=== PATIENT | female | born 1990 | race Asian ===

== ENCOUNTER 2025-04-16 13:09 | Outpatient (REF) | payer OTHER, SELFPAY ==
[2025-04-17 00:39] LABS: Bacterial Vaginosis PCR POSITIVE (Negative); Candida Group PCR NOT DETECTED (Not Detect); Candida glab krusei PCR NOT DETECTED (Not Detect); Trichomonas vaginalis PCR NOT DETECTED (Not Detect)
== END 2025-04-16 13:10 | disposition home or self-care (01) ==
LOC: HO.LNP 13:09
PROVIDERS: Visit Provider Advanced Practice Midwife
DX: Z01.419 Encounter for gynecological examination (general) (routine) without abnormal findings (principal); N76.0 Acute vaginitis; Z20.2 Contact with and (suspected) exposure to infections with a predominantly sexual mode of transmission
CPT/HCPCS: 81515; 87626; 88175

== ENCOUNTER 2025-04-16 13:09 | Outpatient (AMB) | payer OTHER, SELFPAY ==
--- NOTE | 2025-04-16 13:10 | A.OFFVIS_ITS ---
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 previous care with [facility]. She reports being overdue for her exam and has not had a Pap smear since her three years ago. She has the following concerns: The patient recently completed a five-day course of antibiotics for a urinary tract infection last week. Following the treatment, she began noticing a white vaginal discharge approximately three days ago, a symptom she did not have prior to the medication. She has not used any [id number] treatments for the discharge. She is in a relationship x several years. She denies any issues of DV, declines STD screen Exercise: limited due to life stressors the patient is a restaurant regional owner operator truck driver, which she reports causes significant stress and long work hours. She reports recent weight gain with stress eating and has not been exercising, though she plans to resume exercising after the holiday season Nutrition/calcium: limited Contraception: vasectomy Last Pap: unknown, she does report hx abnormal and will sign ALDO to obtain records , Last mammo: N/A she denies family hx Breast/ovarian ca The patient is a 35-year-old female presenting for an annual gynecological examination. [facility] Medical History (Updated 04/16/25 @ 13:56 by Steffanie Castro CNM) Patient denies medical problems Surgical History (Updated 04/16/25 @ 13:56 by Steffanie Castro CNM) No pertinent past surgical history Family History (Updated 04/16/25 @ 13:57 by Steffanie Castro CNM) Father Hypertension Mother Arthritis Social History (Updated 04/16/25 @ 13:57 by Steffanie Castro CNM) Household Members: Spouse and Children Housing: House Alcohol intake: never Comment: occasionally Patient Tobacco Use Status: Never used Tobacco Use of substances other than those prescribed or required for medical reasons: No Have you been hit, kicked, punched, or otherwise hurt by someone within the past year? 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 Sexually active: Yes Sexual orientation: Straight/Heterosexual Gender identity: Female Female Reproductive History Menstrual Age of Menarche: 13 Date of last menstrual period: 03/25/25 control method: other ( has vasectomy) Total pregnancies: 4 Number of Living Children: 3 Ab spontaneous: 1 History of abnormal pap smear: Yes Review of Systems Const Reports no additional complaints Eyes Reports no additional complaints ENT Reports no additional complaints Card Reports no additional complaints Resp Reports no additional complaints GI Reports no additional complaints Reports as per HPI Skin/Breast Reports system reviewed and no additional complaints, except as documented Physical Exam Vital Signs: Last Vital Signs BP 116/78 04/16/25 13:15 BMI result Body Mass Index 28.8 Const General: cooperative, healthy appearing and no acute distress Orientation/consciousness: patient oriented x3 HEENT Head: Yes normal to inspection and Yes normocephalic Ears: external ears normal General nose exam: No nasal discharge present Neck Neck: Yes normal visual inspection Chest Breast/axilla inspection: normal inspection of the breasts, normal inspection of the axillae and Other (No skin changes, peau d orange, or nipple discharge noted) Breast/axilla palpation: normal palpation of the breasts, normal palpation of the axillae and no axillary lymphadenopathy Resp Effort & Inspection: normal respiratory effort and able to speak in complete sentences GI Inspection: No distended Palpation (GI): Soft to palpation, nontender and no masses Percussion: Yes normal to percussion Rectal Exam - Female: External hemorrhoid(s) present External Female Exam: normal external appearance and normal appearance of the urethra Speculum Exam - Vagina: normal appearance of the vagina and other (creamy white vaginal discharge) Speculum Exam - Cervix: normal appearance of the cervix and normal palpation (neg CMT) Bimanual exam- vagina & uterus: normal bimanual exam, normal palpation (neg CMT), uterine mobility normal and non-tender Bimanual Exam- Adnexa, other: no masses and No adnexal tenderness Skin General skin exam: no rashes or lesions noted Neuro General: patient oriented x3 and moves all extremities Extrem General: Yes full ROM Psych Speech and movement: Normal speech and movement present Affect: normal affect Attitude: cooperative Thought process: Normal thought process present Assessment & Plan Assessment & Plan (1) Well woman exam with routine gynecological exam: Code(s): Z01.419 - Encounter for gynecological examination (general) (routine) without abnormal findings Plan: During the visit, the following areas of concern were addressed: Monitoring of the menstrual cycle Regular exercise Healthy lifestyle Domestic violence Health Maintenance and Screening -Reviewed ASCCP guidelines for Paps and yearly (bi-yearly ) pelvic exam. -Reviewed and encouraged diet and exercise for cardiovascular and bone health -Reviewed breast self-awareness. Importance of yearly mammogram after age 40 (earlier if first-degree relative with breast cancer at a younger age ) Discuss use of 3 times per week weight-bearing exercise, vitamin D3 and servings of dietary calcium daily for bone health. -continue to follow with PCP for general medical care, immunizations. Family and personal history of cancer reviewed. Genetic screening- not indicated The patient has BMI: 28 Approaches towards weight loss are discussed including burning more calories than one takes in by frequent, small meals, portion control, avoiding eating before bedtime, regular exercise with an emphasis on duration rather than intensity, strength training exercise. RTO one year or sooner ford Castro CNM Note about provider documentation : If you or the patient named in this chart and are reviewing your medical notes, please note that medical documentation is often written with abbreviations and medical terminology, and directed for other providers who may be involved in your care as well. Documentation is critical to record what has happened, what tests were ordered, and so they are interpreted with the resulting diagnoses. These notes have been made available for patient review but not specifically written for the patient. Important health information is always given to my patients in clinical instructions. Please review your after visit summary and our contact our clinical staff if you have any questions. (2) Screening breast examination: Code(s): Z12.39 - Encounter for other screening for malignant neoplasm of breast (3) Screening for malignant neoplasm of cervix: Code(s): Z12.4 - Encounter for screening for malignant neoplasm of cervix (4) Acute vaginitis: Code(s): N76.0 - Acute vaginitis Plan 1. Routine gynecological care The patient is a 35-year-old female presenting for an overdue annual examination. A clinical breast exam and pelvic exam were performed. A co-test Pap smear was collected for cervical cancer screening, as her last one was over three years ago. The patient will sign a release to obtain prior records to review her history, including a possible past abnormal Pap smear. 2. Vaginal discharge The patient reports new onset of white vaginal discharge after a recent course of antibiotics for a UTI. This is suspicious for vulvovaginal candidiasis. A swab was collected for testing. Results are expected by Monday, and treatment will be based on the findings. 3. Health Maintenance Breast self-awareness was discussed, with instruction to check for changes and report any concerns. The patient was counseled on lifestyle factors, including stress and weight gain. Her partner's vasectomy was confirmed as her method of contraception. Orders: Orders Bacterial Vaginosis Panel Today N76.0 - Acute vaginitis, Z01.419 - Encounter for gynecological examination (general) (routine) without abnormal findings Pap Smear Today Z01.419 - Encounter for gynecological examination (general) (routine) without abnormal findings, Z12.4 - Encounter for screening for malignant neoplasm of cervix Coding Level of Care Code New Pt Prev Care 18-39yr([id number] Diagnoses Well woman exam with routine gynecological exam Z01.419 Screening breast examination Z12.39 Screening for malignant neoplasm of cervix Z12.4 Acute vaginitis N76.0
--- OUTSIDE RECORDS SUMMARY | 2025-04-16 13:11 | XMS_ITS | Encounter Summary ---
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 Name Role Phone Alicia Washburn MD Primary Care Provider [phone] Encounter Details Date Type Department Care Team (Late st Contact Info) Description 04/02/2025 Results Follow-Up Internal [facility] [address] [place], [place] [phone] Alicia Washburn MD [address], [place] Social History Tobacco Use Types Packs/Day Years Used Date Smoking Tobacco: Never Smokeless Tobacco: Never Alcohol Use Standard Drinks/Week Comments Not Currently 1.7 (1 standard drink = 0.6 oz p ure alcohol) Housing Instability Answer Date Recorde d Are you worried that in the next 2 months you may not have stable housing? No 04/02/2025 Food Access & Nutrition Answer Date Rec orded Do you have access to a vari ety of food including fruits and vegetables? Yes 04/02/2025 Access to Healthcare Answer Date Record ed Within the last 3 months, ho w many times did you visit the emergency department for your medical care? 0 04/02/2025 Health Literacy Answer Date Recorded How often do you need to hav e someone help you when you read instructions, pamphlets, or other written material from your doctor or pharmacy? Never 04/02/2025 Caregiver: How often do you need to have someone help you when you read instructions, pamphlets, or other written material from your doctor or pharmacy? Not on file 04/02/2025 Financial Risk Answer Date Recorded How hard is it for you to pa y for the very basics like food, housing, medical care, and air conditioning / heating? Somewhat hard 04/02/2025 Transportation Answer Date Recorded Has the lack of transportati on kept you from meetings, work, or from getting things needed for daily living? No Has the lack of transportati on kept you from medical appointments or from getting medications? No 04/02/2025 Social Isolation Answer Date Recorded How often do you feel lonely or isolated from th ose around you? Never 04/02/2025 Food Risk Answer Date Recorded Within the past 12 months we worried whether our food would run out before we got money to buy more. Sometimes true 025 Within the past 12 months th e food we bought just didn't last and we didn't have money to get more. Never true 04/02/2025 Dependent Care Answer Date Recorded Do you need help finding or paying for care for your loved ones. For example, child care specialist or elderly care for an older adult? No 04/02/2025 Education Answer Date Recorded Do you think completing more education or training, like finishing a GED, going to college, or learning a trade, would be helpful for you? No 04/02/2025 Employment and Income Answer Date Recor ded During the last four weeks, have you been actively looking for work? No 04/02/2025 Living Situation Answer Date Recorded What is your living situation? Unrecognized valu e 04/02/2025 Comments No Sex and Gender Information Value Date Recorded Sex Assigned at Not on file Legal Sex Female 8:18 PM EST Gender Identity Not on file Sexual Orientation Not on file documented as of this encounter Ordered Prescriptions Prescription Sig Dispense Quantity Refills Last Filled Start Date End Date nitrofurantoin, macrocrystal-monoh ydrate, (MACROBID) 100 mg capsule Take 1 capsule (100 mg total) by mouth 2 (two) times a day for 5 days. 10 each 04/04/2025 documented in this encounter Progress Notes * Alicia Washburn MD - 04/03/2025 8:50 AM EST Please call patient to reply to IPPLEXt message Repeat urine analysis ordered Dear Annabella, Reviewed your labs. Your cholesterol is moderately elevated. Recommend heart healthy diet like Mediterrain diet. Will send info. I am referring you to hematology for elevated red cell count. Your urine looks contaminated. We can repeat the urine test, make sure you catch mid stream specimen in a sterile cup after wiping the area front to back Reply to my message Dr Washburn documented in this encounter Plan of Treatment Upcoming Encounters Date Type Department Care Team (Late st Contact Info) Description 10/09/2025 11:00 AM EDT Office Visit Internal Medicine - [address] [place] [phone] Alicia Washburn MD [address] [place] [phone] documented as of this encounter Visit Diagnoses Diagnosis Acute cystitis without hematuria- Primary documented in this encounter Additional Health Concerns Assessment Noted Time PHQ-9 Depression Total Score: 0 04/02/20 11:12 AM EST documented as of this encounter Care Teams Cnc Machinist 2Nd Shift Relationship Specialty Start Date End Date Alicia Washburn MD [address] [place] [phone] PCP - General Internal Medicine 06/26/24 documented as of this encounter
--- OUTSIDE RECORDS SUMMARY | 2025-04-16 13:12 | XMS_ITS | Clinical Summary ---
Author Organization [facility] [address] [facility] l[address] Address [address] [place] [address] Phone Care Team Providers Care Field Service Tech Name Role Phone lAicia Washburn MD Primary Care Provider [phone] Allergies Active Allergy Reactions Criticality Noted Date Comments Covid-19 Vacc,Mrna(Moderna)-Pf 06/03/2022 Vomiting, fever, body aches, diarrhea Medications omega 2-prm-ccj-fish oil (Fish OiL) 1,000 (120-180) mg capsule Active nitrofurantoin, macrocrystal-mo nohydrate, (MACROBID) 100 mg capsule Take 1 capsule (100 mg total) by mouth 2 (two) times a day for 5 days. 10 each 04/04/2025 04/09/20 25 Active Problems Problem Noted Date Diagnosed Date Low grade squamous intraepit h lesion on cytologic smear cervix (lgsil) 09/06/2018 Overview (02/09/2024): 08/31/2018 PAP _ LSIL, + HRHPV 11/01/18: AWC at 3 o'clock, no biopsy taken, Will repeat pap at her 6 week post visit. 03/2019 PAP- neg cytology, neg HPV Repeat PAP one year 08/12/2021 Pap NIL neg HPV Headache, migraine 08/02/2018 Overview (02/09/2024): states she has been suffering from migrane headaches tylenol extra strength with no relief Hx of migrane headaches Pt advised to take excedrin tension and if no relief to call the office 11/21/2018 started Fiorecet q 6hr prn 01/03/2019 good relief 01-14-20 pt went to [facility] ed for migrane headaches Take the Fioricet as directed as needed for headache. Zofran as needed for nausea and/or vomiting. Please follow-up with neurology as scheduled on 01/24/2020. Turn immediately for any worsening symptoms or further concerns you may have. Pt states she was then followed by either physical therapy or chiro which helped but her insurance changed and she d/c services - ANGEL JETT 08/02/2021 pt states she has 3-4 migranes / week since becoming . She currently has no pcp and is not managed by a provider - ANGEL JETT Sickle cell trait 07/22/2016 Overview (02/09/2024): Pt unsure if Fob was tested in last , there was some issues with insurance coverage. Pledge51 shows no lab work completed by him Deion Ольга [place] [birth year] 08/02/2021 pt remains unsure if FOB ever tested for trait. She is unsure if her children have been tested - ANGEL JETT Encounters Date Type Department Care Team Description 04/02/2025 12:10 PM EST Lab Draw Station - [address] [phone] Dysuria; Annual physical exam; Screening for deficiency anemia 04/02/2025 11:30 AM EST Office Visit Internal Medicine - [address] [phone] Alicia Washburn MD Annual physical exam (Primary Dx); Screening for deficiency anemia; Dysuria; Hair loss; Rash; Well woman exam with routine gynecological exam; RBC microcytosis; Erythrocytosis; History of sickle cell trait 04/02/2025 Results Follow-Up Internal Medicine - [address] [phone] Alicia Washburn MD from Last 3 Months Immunizations Immunization Administration Dates Next Due Hepatitis B (Xrdrbif-L-Mavhq , Recombivax HB-Adult) 19yo and older 03/23/2016,10/22/2015,09/17/2015 MMR, measles mumps and rubel la Live (Priorix; M-M-R II) 12mo and older 09/03/2015 Tdap Tetanus diptheria acell ular pertussis (Boostrix; Adacel) 7yo and older 12/02/2021,12/19/2018,11/10/2016,2015 Varicella live (Varivax) 12m o and older 09/03/2015 Surgical History Surgery Date Site/Laterality Comments COLPOSCOPY 08/24/2017 PROCEDURE: MA COLPOSCOPY ENTIRE VAGINA W/CERVIX IF PRESENT; COMMENT: colpo r/t ASCUS high risk HPV on pap; no biopsy Medical History Medical History Date Comments Sickle cell trait (CMS/HCC V24) DX:Sickle cell trait (HCC) Headache, migraine DX:Headache, migraine Abnormal Pap smear of cervix 2017 DX: Abnormal Pap smear of cervix Type O blood, Rh positive 2016 DX:Typ e O blood, Rh positive Family History Medical History Relation Name Comments Hypertension Father Diabetes Maternal Grandmother stroke Arthritis Mother Stroke Paternal Grandmother Relation Name Status Comments Father Alive Maternal Grandmother Mother Alive Paternal Grandmother Social History Tobacco Use Types Packs/Day Years Used Date Smoking Tobacco: Never Smokeless Tobacco: Never Tobacco Cessation:Counseling Given: Not Answered Alcohol Use Standard Drinks/Week Comments Not Currently [...] care for your loved ones. For example, children's attendant or elderly care for an older adult? [...] on file Sexual Orientation Not on file Last Filed Vital Signs Vital Sign Reading Time Taken Comments Blood Pressure 122/84 04/02/2025 11:14 AM EST au to Pulse 67 04/02/2025 11:14 AM EST Temperature 36.4 C (97.5 F) 03/28/2024 10:04 AM EST Respiratory Rate - - Oxygen Saturation - - Inhaled Oxygen Concentration - - Weight 78.5 kg (173 lb) 04/02/2025 11:14 AM EST Height 165.1 cm (5' 5 ) 04/02/2025 11:14 AM EST Body Mass Index 28.79 04/02/2025 11:14 AM EST Plan of Treatment Upcoming Encounters Date Type Department Care Team (Late st Contact Info) Description 10/09/2025 11:00 AM EDT Office Visit Internal Medicine - [facility] [address] [facility] [place] [phone] [facility] Washburn [facility] [address] [facility] [place] Health Maintenance Due Date Last Done Comments Pneumococcal Vaccine: Pediatrics (0 to 5 Years) and At-Risk Patients (6 to 49 Years) (1 of 2 - PCV) 01/29/2008 HPV Vaccines (1 - 3-dose SCDM series) 01/29/2016 COVID-19 Vaccine (2 - season) 2024 01/09/2021 Influenza Vaccine (#1) 2024 Social Influencers of Health Screening 04/02/2026 04/02/2025 Cervical Cancer Screening: HPV 08/12/2026 08/12/2021 Cholesterol Screening (Lipid Panel) 04/02/2030 04/02/2025, 06/24/2019 DTaP,Tdap,and Td Vaccines (5 - Td or Tdap) 12/03/2031 12/02/2021, 12/19/2018, 11/10/2016, Additional history exists RSV Immunization Adult Patients (1 - 1-dose 75+ series) 01/29/2064 MMR Vaccines Aged Out 09/03/2015 No longer eligi ble based on patient's age to complete this topic Varicella Vaccines Aged Out 09/03/2015 No longer eligible based on patient's age to complete this topic Hepatitis B Vaccines Completed 03/23/2016, 10/22/2015, 09/17/2015 HIV Screening Completed 08/02/2021 Hepatitis C Screening Completed 08/02/2021 Depression Screening Completed 04/02/2025 HIB Vaccines Aged Out No longer eligi ble based on patient's age to complete this topic Hepatitis A Vaccines Aged Out No long er eligible based on patient's age to complete this topic IPV Vaccines Aged Out No longer eligi ble based on patient's age to complete this topic Meningococcal ACWY Vaccine Aged Out N o longer eligible based on patient's age to complete this topic Meningococcal B Vaccine Aged Out No l onger eligible based on patient's age to complete this topic RSV Immunization Patients Under 20 months Aged Out No longer eligible based on patient's age to complete this topic Procedures Procedure Name Priority Date/Time Associated Diagnosis Comments PADILLA URINE CULTURE TUBE Routine 04/02/2025 12:15 PM EST Dysuria CBC WITH AUTO DIFFERENTIAL Routine 04/02/2025 12:14 PM EST Screening for deficiency anemia URINALYSIS WITH REFLEX MICROSCOPIC AND CULTURE Routine 04/02/2025 12:14 PM EST Dysuria CBC AND DIFFERENTIAL Routine 04/02/2025 12:14 PM EST Screening for deficiency anemia LIPID PANEL WITH REFLEX TO DIRECT LDL Routine 04/02/2025 12:14 PM EST Annual physical exam THYROID STIMULATING HORMONE WITH REFLEX TO FREE T4 AND FREE T3 Routine 04/02/2025 12:14 PM EST Annual physical exam COMPREHENSIVE METABOLIC PANEL Routine 04/02/2025 12:14 PM EST Annual physical exam URINALYSIS WITH REFLEX MICROSCOPIC AND CULTURE Routine 04/02/2025 12:14 PM EST Dysuria CULTURE URINE Routine 04/02/2025 12:14 PM EST Dysuria HM HPV Routine 08/12/2021 HM HEPATITIS C SCREENING Routine 08/02/2021 HM HIV SCREENING Routine 08/02/2021 from Last 3 Months or Most Recently Relevant to Health Maintenance Results * Padilla urine culture tube (04/02/2025 12:15 PM EST) Extra Tube Hold for add-ons. 04/02/2025 2:01 PM EST [facility] Comment:Auto resulted. Urine Urine specimen obtained by clean catch procedure / Unknown Non-blood Collection / Unknown 04/02/2025 12:15 PM EST 04/02/2025 12:15 PM EST us Alicia Washburn MD LAB URINE ORDERABLES Final Res ult [facility] [address] [place] [address], [place] [phone] * (ABNORMAL) Urinalysis with reflex microscopic and culture (04/02/2025 12:14 PM EST) Specific [place] Urine 1.027 1.003 - 1.030 LAB URINALYSIS - AUTOMATED METHOD 04/02/2025 2:13 PM [facility] pH, Urine 6.5 5.0 - 8.0 pH LAB URINALYSIS - AUTOMATED METHOD 04/02/2025 2:13 PM [facility] Leukocytes, Urine Small(A) Negative LAB URINALYSIS - AUTOMATED METHOD 04/02/2025 2:13 PM [facility] Nitrite, Urine Negative Negative LAB URINALYSIS - AUTOMATED METHOD 04/02/2025 2:13 PM [facility] Protein, Urine 30(A) <=Trace mg/dL LAB URINALYSIS - AUTOMATED METHOD 04/02/2025 2:13 PM [facility] Glucose, Urine Negative Negative mg/dL LAB URINALYSIS - AUTOMATED METHOD 04/02/2025 2:13 PM [facility] Ketones, Urine 15(A) Negative mg/dL LAB URINALYSIS - AUTOMATED METHOD 04/02/2025 2:13 PM [facility] Urobilinogen , Urine 1.0 0.2 - 1.0 mg/dL LAB URINALYSIS - AUTOMATED METHOD 04/02/2025 2:13 PM [facility] Bilirubin, Urine Negative Negative LAB URINALYSIS - AUTOMATED METHOD 04/02/2025 2:13 PM [facility] Blood, Urine Negative Negative LAB URINALYSIS - AUTOMATED METHOD 04/02/2025 2:13 PM [facility] RBC, Urine 4 0 - 4 /HPF 04/02/2025 2:13 PM [facility] WBC, Urine 20(H) 0 - 4 /HPF 04/02/2025 2:13 PM [facility] Squamous Epithelial, Urine 70(H) 0 - 60 /LPF 04/02/2025 2:13 PM [facility] Bacteria, Urine Moderate(A) Negative /HPF 04/02/2025 2:13 PM [facility] Mucus, Urine Moderate None /HPF 04/02/2025 2:13 PM [facility] Urine Urine specimen obtained by clean catch procedure / Unknown Non-blood Collection / Unknown 04/02/2025 12:14 PM EST 04/02/2025 12:14 PM EST Alicia Washburn MD LAB URINE ORDERABLES Final Res ult Performing Organization Address City/[facility]/ZIP Co de Phone Number [facility] [address] [place] [address], [place] [phone] * Thyroid stimulating hormone with reflex to free t4 and free t3 (04/02/2025 12:14 PM EST) TSH 2.10 0.40 - 4.00 mcIU/mL 04/02/2025 3:31 PM [facility] Blood Venous blood specimen / Unknown Venipuncture / Unknown 04/02/2025 12:14 PM EST 04/02/2025 12:14 PM EST us Alicia Washburn MD LAB BLOOD ORDERABLES Final Res ult [facility] [address] [place] [address], [place] [phone] * (ABNORMAL) Lipid panel with reflex to direct LDL (04/02/2025 12:14 PM EST) [facility] Cholesterol 249(H) 0 - 200 mg/dL 04/02/2025 3:33 PM [facility] Triglycerides 92 0 - 150 mg/dL 04/02/2025 3:33 PM EST [facility] HDL 63 >=40 mg/dL 04/02/2025 3:33 PM [facility] LDL Calculated 168(H) 0 - 100 mg/dL 04/02/2025 3:33 PM [facility] Comment:Estimated LDL is saqib culated using the Friedewald equation: Total cholesterol - HDL cholesterol - (Triglycerides/5) VLDL Cholesterol Saqib 18.4 mg/dL 04/02/2025 3:33 PM [facility] Non HDL Chol. (LDL+VLDL) 186(H) <145 mg/dL 04/02/2025 3:33 PM [facility] Chol/HDL Ratio 4.0 0.0 - 4.4 04/02/2025 3:33 PM [facility] Blood Venous blood specimen / Unknown Venipuncture / Unknown 04/02/2025 12:14 PM EST 04/02/2025 12:14 PM EST us Alicia Washburn MD LAB BLOOD ORDERABLES Final Res ult [facility] [address] [place] [address], [place] [phone] * (ABNORMAL) CBC auto differential (04/02/2025 12:14 PM EST) [facility] WBC 6.5 4.8 - 10.8 K/[facility] LAB HEMETOLOGY METHOD 04/02/2025 1:59 PM EST [facility] RBC 5.20(H) 3.80 - 4.80 M/mcL LAB HEMETOLOGY METHOD 04/02/2025 1:59 PM [facility] Hemoglobin 12.9 11.5 - 16.0 g/dL LAB HEMETOLOGY METHOD 04/02/2025 1:59 PM [facility] Hematocrit 38.9 35.0 - 47.0 % LAB HEMETOLOGY METHOD 04/02/2025 1:59 PM [facility] MCV 75.2(L) 79.0 - 98.0 FL LAB HEMETOLOGY METHOD 04/02/2025 1:59 PM [facility] MCH 25.0(L) 27.0 - 32.0 pcg LAB HEMETOLOGY METHOD 04/02/2025 1:59 PM [facility] MCHC 33.2 32.0 - 37.0 g/dL LAB HEMETOLOGY METHOD 04/02/2025 1:59 PM [facility] RDW 15.3(H) 11.0 - 15.0 % LAB HEMETOLOGY METHOD 04/02/2025 1:59 PM [facility] Platelets 342 130 - 400 K/mcL LAB HEMETOLOGY METHOD 04/02/2025 1:59 PM [facility] MPV 12.1(H) 7.0 - 11.0 FL LAB HEMETOLOGY METHOD 04/02/2025 1:59 PM [facility] NRBC 0.0 <1.0 % LAB HEMETOLOGY METHOD 04/02/2025 1:59 PM [facility] NRBC Absolute 0.00 <0.10 K/mcL LAB HEMETOLOGY METHOD 04/02/2025 1:59 PM [facility] Neutrophils Relative 43.9 % LAB HEMETOLOGY METHOD 04/02/2025 1:59 PM [facility] Lymphocytes Relative 39.8 % LAB HEMETOLOGY METHOD 04/02/2025 1:59 PM [facility] Monocytes Relative 6.6 % LAB HEMETOLOGY METHOD 04/02/2025 1:59 PM [facility] Eosinophils Relative 8.9 % LAB HEMETOLOGY METHOD 04/02/2025 1:59 PM [facility] Basophils Relative 0.6 % LAB HEMETOLOGY METHOD 04/02/2025 1:59 PM [facility] Immature Granulocytes Relative 0.2 % LAB HEMETOLOGY METHOD 04/02/2025 1:59 PM [facility] Neutrophils Absolute 2.85 1.50 - 7.00 K/mcL LAB HEMETOLOGY METHOD 04/02/2025 1:59 PM [facility] Lymphocytes Absolute 2.59 1.00 - 5.00 K/mcL LAB HEMETOLOGY METHOD 04/02/2025 1:59 PM [facility] Monocytes Absolute 0.43 0.20 - 1.00 K/mcL LAB HEMETOLOGY METHOD 04/02/2025 1:59 PM [facility] Eosinophils Absolute 0.58(H) 0.00 - 0.50 K/mcL LAB HEMETOLOGY METHOD 04/02/2025 1:59 PM [facility] Basophils Absolute 0.04 0.00 - 0.20 K/mcL LAB HEMETOLOGY METHOD 04/02/2025 1:59 PM [facility] Immature Granulocytes Absolute 0.01 0.00 - 0.03 K/mcL LAB HEMETOLOGY METHOD 04/02/2025 1:59 PM [facility] Blood Venous blood specimen / Unknown Venipuncture / Unknown 04/02/2025 12:14 PM EST 04/02/2025 12:14 PM EST us Alicia Washburn MD LAB BLOOD ORDERABLES Final Res ult [facility] [address] [place] [address], [place] [phone] * (ABNORMAL) Culture urine (04/02/2025 12:14 PM EST) Pathologist [facility] Culture, Urine >=100,000 CFU/mL Escherichia coli(A) ALFONSO 04/04/2025 10:59 AM EST [facility] Urine Urine specimen obtained by clean catch procedure / Unknown Non-blood Collection / Unknown 04/02/2025 12:14 PM EST 04/02/2025 2:13 PM EST Narrative Organism Antibiotic Method Susceptibility Escherichia coli Amoxicillin/Clavulanate ALFONSO >=32 ug/ml: Resistant Escherichia coli Ampicillin/Sulbactam ALFONSO >=32 ug/ml: Resistant Escherichia coli Piperacillin/Tazobactam ALFONSO 8 ug/ml: Susceptible Escherichia coli Cefazolin (Urine) ALFONSO >=32 ug/ml: Resistant Escherichia coli Cefoxitin ALFONSO 16 ug/ml: Intermediate Escherichia coli Ceftazidime ALFONSO 8 ug/ml: Intermediate Escherichia coli Ceftriaxone ALFONSO <=0.25 ug/ml: Susceptible Escherichia coli Cefepime ALFONSO <=0.12 ug/ml: Susceptible Escherichia coli Meropenem ALFONSO <=0.25 ug/ml: Susceptible Escherichia coli Amikacin ALFONSO 2 ug/ml: Susceptible Escherichia coli Gentamicin ALFONSO <=1 ug/ml: Susceptible Escherichia coli Ciprofloxacin ALFONSO 1 ug/ml: Resistant Escherichia coli Levofloxacin ALFONSO 1 ug/ml: Intermediate Escherichia coli Nitrofurantoin ALFONSO <=16 ug/ml: Susceptible Escherichia coli Trimethoprim/Sulfamethoxazole ALFONSO >=320 ug/ml: Resistant us Alicia Washburn MD LAB MICROBIOLOGY - GENERAL ORD ERABLES Final Result [facility] [address] [place] [address], [place] [phone] * (ABNORMAL) Comprehensive metabolic panel (04/02/2025 12:14 PM EST) Pathologist [facility] Sodium 138 133 - 145 mmol/L 04/02/2025 3:33 PM EST [facility] Potassium 4.1 3.5 - 5.5 mmol/L 04/02/2025 3:33 PM [facility] Chloride 101 96 - 110 mmol/L 04/02/2025 3:33 PM [facility] CO2 28 21 - 32 mmol/L 04/02/2025 3:33 PM [facility] Anion Gap 9 3 - 11 04/02/2025 3:33 PM [facility] Glucose 79 70 - 100 mg/dL 04/02/2025 3:33 PM [facility] BUN 8 5 - 25 mg/dL 04/02/2025 3:33 PM [facility] Creatinine 0.83 0.50 - 1.10 mg/dL 04/02/2025 3:33 PM [facility] eGFR 94 >=60 mL/min/1. 73m2 04/02/2025 3:33 PM [facility] Comment:Calculation based on the Chronic Kidney Disease Epidemiology Collaboration (CKD-EPI) equation refit without adjustment for race. BUN/Creatinine Ratio 9.6 04/02/2025 3:33 PM [facility] Calcium 8.4(L) 8.5 - 10.5 mg/dL 04/02/2025 3:33 PM [facility] AST (SGOT) 15 10 - 42 unit/L 04/02/2025 3:33 PM [facility] ALT (SGPT) 14 10 - 60 unit/L 04/02/2025 3:33 PM [facility] Alkaline Phosphatase 86 42 - 121 unit/L 04/02/2025 3:33 PM [facility] Total Protein 7.2 6.0 - 8.0 g/dL 04/02/2025 3:33 PM [facility] Albumin 4.3 3.2 - 5.0 g/dL 04/02/2025 3:33 PM EST [facility] Total Bilirubin 0.4 0.0 - 1.4 mg/dL 04/02/2025 3:33 PM EST [facility] Blood Venous blood specimen / Unknown Venipuncture / Unknown 04/02/2025 12:14 PM EST 04/02/2025 12:14 PM EST Alicia Washburn MD LAB BLOOD ORDERABLES Final Res ult [facility] [address] [place] [address], [place] [phone] * Cervical Cancer Screening: HPV (08/12/2021) [facility] Cervical Cancer Screening: HPV Negative, abstracted Historical Provider HEALTH MAINTENANCE Final Result * HIV Screening (08/02/2021) [facility] HIV Screening Abstracted Historical Provider HEALTH MAINTENANCE Final Result * Hepatitis C Screening (08/02/2021) [facility] Hepatitis C Screening Abstracted Historical Provider HEALTH MAINTENANCE Final Result from Last 3 Months or Most Recently Relevant to Health Maintenance Insurance [employer] Care Teams Field Service Tech Relationship Specialty Start Date End Date Alicia Washburn MD [address] [facility] [place] [id number] PCP - General Internal Medicine 06/26/24
[2025-04-16 13:15] VITALS: BP 116/78; BMI 28.8
== END 2025-04-16 13:58 | disposition home or self-care (01) ==
LOC: HO.HWSM 13:09
PROVIDERS: Visit Provider Advanced Practice Midwife
DX: Z01.419 Encounter for gynecological examination (general) (routine) without abnormal findings (principal); Z12.39 Encounter for other screening for malignant neoplasm of breast; Z12.4 Encounter for screening for malignant neoplasm of cervix; N76.0 Acute vaginitis
CPT/HCPCS: 99385; 99459